=== PATIENT | male | born 2000 | race Caucasian/White ===

== ENCOUNTER 2021-06-20 15:43 | Emergency (ER) | payer SELFPAY ==
[2021-06-20] MEDS ORDERED: Lidocaine 1% PF 5 ML VIAL ONE (16:22)
== END 2021-06-20 17:25 | disposition home or self-care (01) ==
LOC: ERS 15:43
DX: S61.212A Laceration without foreign body of right middle finger without damage to nail, initial encounter (principal); W25.XXXA Contact with sharp glass, initial encounter
CPT/HCPCS: 12001